=== PATIENT | male | born 1950 | race American Indian/Alaskan Native ===

== ENCOUNTER 2021-04-11 11:34 | Emergency (ER) | payer MEDICARE ==
[2021-04-11 11:42] VITALS: BP 153/78
--- NOTE | 2021-04-11 13:36 | Emergency Department Report ---
ED Extremity Problem HPI - General Chief complaint: Extremity Problem,Nontraumatic Stated complaint: RT KNEE PAIN Time Seen by Provider: 04/11/21 13:07 Source: patient Mode of arrival: Ambulatory Limitations: No Limitations - History of Present Illness Initial comments: 70-year-old -[place] male presents to the emergency room complaining of right knee pain this morning as he was getting. Patient states that pain is worse with walking and bearing weight. Patient reports that 20 years ago he had a total right knee replacement. Patient denies any new injuries. He states he took Aleve earlier this morning. Patient states he is cannot recall his knee surgeon. He does have a history of diabetes. Patient denies any fever chills denies any swelling to his right knee. MD Complaint: extremity pain, joint paint (Right knee pain) -: This morning Location: right, knee History of Same: Yes -: Yes arthralgia Severity scale (0 -10): 10 Quality: aching, sharp Improves with: rest Worsens with: weight bearing, walking Associated Symptoms: denies other symptoms - Related Data Previous Rx's Medication Instructions Recorded Last Taken Type Ibuprofen [Motrin 600 MG tab] 600 mg PO Q8H PRN #30 tablet 04/11/21 Unknown Rx traMADoL [Ultram 50 MG tab] 50 mg PO Q6HR PRN #15 tablet 04/11/21 Unknown Rx Allergies Allergy/AdvReac Type Severity Reaction Status Date / Time No Known Allergies Allergy Unverified 04/11/21 11:40 ED Review of Systems ROS: Stated complaint: RT KNEE PAIN Other details as noted in HPI Comment: All other systems reviewed and negative ED Past Medical Hx - Past Medical History Previous Medical History?: Yes Hx Diabetes: Yes - Surgical History Past Surgical History?: Yes Additional Surgical History: right knee surgery - Medications Home Medications: Home Medications Medication Instructions Recorded Confirmed Last Taken Type Ibuprofen [Motrin 600 MG tab] 600 mg PO Q8H PRN #30 tablet 04/11/21 Unknown Rx traMADoL [Ultram 50 MG tab] 50 mg PO Q6HR PRN #15 tablet 04/11/21 Unknown Rx ED Physical Exam - General Limitations: No Limitations General appearance: alert, in no apparent distress - Head Head exam: Present: atraumatic, normocephalic - Eye Eye exam: Present: normal appearance - ENT ENT exam: Present: normal external ear exam - Neck Neck exam: Present: normal inspection - Respiratory Respiratory exam: Absent: accessory muscle use - Cardiovascular Cardiovascular Exam: Present: regular rate - Expanded Lower Extremity Exam Right Knee exam: Present: full ROM, crepidus. Absent: tenderness, swelling, abrasion, deformity, dislocation, erythema, effusion Lower Leg exam: Present: full ROM Ankle exam: Present: normal inspection, full ROM Foot/Toe exam: Present: normal inspection Neuro vascular tendon exam: Present: no vascular compromise - Neurological Exam Neurological exam: Present: alert, oriented X3 - Psychiatric Psychiatric exam: Present: normal affect, normal mood - Skin Skin exam: Present: warm, dry, intact, normal color. Absent: rash ED Course Vital Signs 04/11/21 11:41 Temperature 98.4 F Pulse Rate 85 Respiratory 20 Rate Blood Pressure 153/78 O2 Sat by Pulse 98 Oximetry ED Medical Decision Making - Radiology Data Radiology results: report reviewed [facility] [address] [place] [address] XRay Report Signed Patient: NINO EDEN MR#: [id number] : 1950 Acct:[id number] Age/Sex: 70 / M ADM Date: 04/11/21 Loc: ED Attending Dr: Ordering Physician: NAUN DIGGS Date of Service: 04/11/21 Procedure(s): XR knee 3V RT Accession Number(s): [id number] cc: NAUN DIGGS Fluoro Time In Minutes: Right knee 4 views INDICATION: Pain FINDINGS: There is advanced tricompartmental degenerative osteoarthrosis. Postoperative change from prior ACL repair. The femoral ACL screw is partially backed out approximately 1.2 cm. Significant joint space narrowing is seen throughout with joint effusion. IMPRESSION: Tricompartmental degenerative osteoarthrosis. The proximal ACL screw protrudes 1.2 cm from the tunnel. Joint effusion. Signer Name: Ryan Sparks MD Signed: 04/11/2021 1:51 PM Workstation Name: [id number] Transcribed By: SOLOMON Dictated By: DANILO SPARKS MD Electronically Authenticated By: DANILO SPARKS MD Signed Date/Time: 04/11/21 1351 DD/ 1350 TD/TT: Print Cancel - Medical Decision Making 70-year-old -[place] male presents to the emergency room complaining of right knee pain this morning as he was getting. Patient states that pain is worse with walking and bearing weight. Patient reports that 20 years ago he had a total right knee replacement. Patient denies any new injuries. He states he took Aleve earlier this morning. Patient states he is cannot recall his knee surgeon. He does have a history of diabetes. Patient denies any fever chills denies any swelling to his right knee. X-ray of right knee shows tricompartment degenerative osteoarthritis. The proximal ACL screw protruding 1.2 cm from the tunnel. No joint effusion. We will place patient in Baum wrap and have him follow-up with orthopedic provider. Patient will be given pain medication. Discussed with patient of findings. Patient verbalized understanding of the plan. Critical care attestation.: If time is entered above; I have spent that time in minutes in the direct care of this critically ill patient, excluding procedure time. ED Disposition Clinical Impression: Pain, joint, knee, right Disposition: DC-01 TO HOME OR SELFCARE Is pt being admited?: No Does the pt Need Aspirin: No Condition: Stable Instructions: Acute Knee Pain, Adult, [id number] Additional Instructions: X-ray of right knee shows advanced tricompartment degenerative osteoarthritis. They do show that the proximal ACL screws protrudes 1.2 cm from the tunnel. You have a joint effusion. We will place you in a wrap and have you follow-up with orthopedics provider. Pain medication as needed. Prescriptions: Ibuprofen [Motrin 600 MG tab] 600 mg PO Q8H PRN #30 tablet PRN Reason: Pain , Severe (7-10) traMADoL [Ultram 50 MG tab] 50 mg PO Q6HR PRN #15 tablet PRN Reason: Pain , Severe (7-10) Referrals: ORIANA HINOJOSA MD [Staff Physician] - 3-5 Days BRADLY GARCIA MD [Staff Physician] - 3-5 Days Forms: Work/School Release Form(ED)
--- NOTE | 2021-04-11 13:55 | XRay Report ---
Right knee 4 views INDICATION: Pain FINDINGS: There is advanced tricompartmental degenerative osteoarthrosis. Postoperative change from p rior ACL repair. The femoral ACL screw is partially backed out approximately 1.2 cm. Significant join t space narrowing is seen throughout with joint effusion. IMPRESSION: Tricompartmental degenerative osteoarthrosis. The proximal ACL screw protrudes 1.2 cm from the tunnel . Joint effusion. Signer Name: Ryan Sparks MD Signed: 04/11/2021 1:51 PM Workstation Name: [id number]
[2021-04-11] MEDS ORDERED: IBUPROFEN 600 MG TAB PO ONE (13:57)
[2021-04-11] MEDS ORDERED: traMADol 50 MG TAB PO ONE (13:57)
== END 2021-04-11 16:12 | disposition home or self-care (01) ==
LOC: ED 11:34
DX: M25.561 Pain in right knee (principal); E11.9 Type 2 diabetes mellitus without complications; Z98.890 Other specified postprocedural states; Z79.1 Long term (current) use of non-steroidal anti-inflammatories (NSAID); Z79.899 Other long term (current) drug therapy

== ENCOUNTER 2021-09-10 12:52 | Emergency (ER) | payer MEDICARE ==
[2021-09-10 12:54] VITALS: BP 144/82
[2021-09-10] MEDS ORDERED: SULFAMETHOXAZOLE/TRIMETHOPRIM 800/160MG DS TAB PO ONE (13:09)
[2021-09-10] MEDS ORDERED: TETANUS,DIPH,PERTUSS(ACELL) VACCINE 0.5 ML SYRINGE IM ONE (13:09)
[2021-09-10] MEDS ORDERED: LIDOCAINE 1%/EPINEPHRINE 1:100,000 VIAL (20 ML) INFILTRATI NR (13:15)
[2021-09-10] MEDS ORDERED: LIDOCAINE (1%) 10 MG/1 ML VIAL 20 ML MDV INFILTRATI ONE (13:18)
--- NOTE | 2021-09-10 13:53 | Emergency Department Report ---
ED Upper Extremity Inj HPI - General Chief Complaint: Extremity Injury, Upper Stated Complaint: INSECT BITE Time Seen by Provider: 09/10/21 12:57 Source: patient Mode of arrival: Ambulatory Limitations: No Limitations - History of Present Illness Initial Comments: 71-year-old jyu-mhnqnsp-vrfibkpbi diabetic presents to the hospital complaining of right thumb pain and swelling progressively worsened for last 3 days. Pain is moderate to severe and worse with palpation and movement. Pain mostly around the nailbed but extends to the thumb and index finger. patient denies trauma, recent manicure, or nail biting. Patient is right-hand dominant. - Related Data Previous Rx's Medication Instructions Recorded Last Taken Type Ibuprofen [Motrin 600 MG tab] 600 mg PO Q8H PRN #20 tablet 09/10/21 Unknown Rx Sulfamethoxazole/Trimethoprim 1 each PO BID #14 tablet 09/10/21 Unknown Rx [Bactrim DS TAB] traMADoL [Ultram 50 MG tab] 50 mg PO Q6HR PRN #10 tablet 09/10/21 Unknown Rx Allergies Allergy/AdvReac Type Severity Reaction Status Date / Time No Known Allergies Allergy Unverified 04/11/21 11:40 ED Review of Systems ROS: Stated complaint: INSECT BITE Other details as noted in HPI Comment: All other systems reviewed and negative ED Past Medical Hx - Past Medical History Hx Hypertension: Yes Hx Diabetes: Yes Hx Renal Disease: Yes (CRI) Hx Arthritis: Yes - Surgical History Additional Surgical History: right knee surgery - Medications Home Medications: Home Medications Medication Instructions Recorded Confirmed Last Taken Type Ibuprofen [Motrin 600 MG tab] 600 mg PO Q8H PRN #20 tablet 09/10/21 Unknown Rx Sulfamethoxazole/Trimethoprim 1 each PO BID #14 tablet 09/10/21 Unknown Rx [Bactrim DS TAB] traMADoL [Ultram 50 MG tab] 50 mg PO Q6HR PRN #10 tablet 09/10/21 Unknown Rx ED Physical Exam - General Limitations: No Limitations - Other Other exam information: General: No acute distress Head: Atraumatic Eyes: normal appearance ENT: Moist mucous membranes Neck: Normal appearance, no midline tenderness Chest: Clear to auscultation bilaterally CV: Regular rate and rhythm Abdomen: Soft, normal bowel sounds, nontender, nondistended, no rebound or guarding Back: Normal inspection Extremity: Tenderness and swelling to the inferior lateral (ulnar side) portion of the right nailbed.. No tenderness to more proximal area of the thumb or index finger Neuro: Alert O x 3, no facial asymmetry, speech clear, no gross motor sensory deficit Psych: Appropriate behavior Skin: No rash ED Course Vital Signs 09/10/21 12:53 Temperature 98.2 F Pulse Rate 103 H Respiratory 18 Rate Blood Pressure 144/82 [Right] O2 Sat by Pulse 99 Oximetry - I & D Hand Type of Procedure: Simple Site: Lateral nailbed of right thumb (ulnar side) Blade Size: 11 I & D Procedure: betadine prep, sterile drapes applied, sterile dressing applied, gauze wick placed Progress: Positive purulent drainage ED Medical Decision Making - Medical Decision Making 71-year-old male presents to the hospital with a right thumb paronychia. Status post incision and drainage with purulent drainage from the nailbed. Bactrim and tetanus provided. Dressing applied. Patient to follow-up for packing removal in 2 days here or with PCP Critical Care Time: No Critical care attestation.: If time is entered above; I have spent that time in minutes in the direct care of this critically ill patient, excluding procedure time. ED Disposition Clinical Impression: Paronychia Disposition: HOME / SELF CARE / HOMELESS Is pt being admited?: No Does the pt Need Aspirin: No Condition: Stable Instructions: Paronychia Additional Instructions: Take the medication as prescribed. Follow-up with your doctor or doctor/clinic provided or you may return here for packing removal in 2 days. Return if symptoms worsen as indicated by your discharge instructions. Prescriptions: Sulfamethoxazole/Trimethoprim [Bactrim DS TAB] 1 each PO BID #14 tablet Ibuprofen [Motrin 600 MG tab] 600 mg PO Q8H PRN #20 tablet PRN Reason: Pain , Severe (7-10) traMADoL [Ultram 50 MG tab] 50 mg PO Q6HR PRN #10 tablet PRN Reason: Pain , Severe (7-10) Referrals: GIO ARREOLA MD [Staff Physician] - 3-5 Days [facility] [Provider Group] - 3-5 Days Time of Disposition: 14:04
== END 2021-09-10 14:28 | disposition home or self-care (01) ==
LOC: ED 12:52
DX: L03.011 Cellulitis of right finger (principal)
CPT/HCPCS: 10060; 90471; 90715; 99282; J3490

== ENCOUNTER 2022-05-11 21:03 | Emergency (ER) | payer MEDICARE ==
--- NOTE | 2022-05-11 22:22 | XRay Report ---
RIGHT KNEE 3 VIEW(S) INDICATION / CLINICAL INFORMATION: INJURY COMPARISON: 04/11/2021 FINDINGS: BONES / JOINT(S): There has been interval right knee arthroplasty since the prior exam. No fracture o r loosening is seen. SOFT TISSUES: There is mild prepatellar soft tissue swelling. Punctate ossific densities adjacent to the superior pole of the patella could be small intra-articular bodies or soft tissue calcifications. ADDITIONAL FINDINGS: None. IMPRESSION: 1. No acute skeletal abnormality. 2. Prepatellar soft tissue swelling. 3. Ossific densities along the superior pole of the patella could be heterotopic ossification or intr a-articular bodies. Comparison with prior postoperative radiographs, if available, would be useful. 4. The patella is somewhat low lying. This may be due to positioning/degree of knee flexion. Does thi s patient have any signs/symptoms of distal quadriceps injury Signer Name: Ritesh Jonas MD Signed: 05/11/2022 10:17 PM Workstation Name: [id number]
[2022-05-11] MEDS ORDERED: IBUPROFEN 600 MG TAB PO ONE (23:19)
[2022-05-11] MEDS ORDERED: ACETAMINOPHEN 500 MG TAB PO ONE (23:19)
[2022-05-11] MEDS ORDERED: predniSONE 20 MG TAB PO ONE (23:19)
--- NOTE | 2022-05-11 23:54 | Emergency Department Report ---
ED Extremity Problem HPI - General Chief complaint: Extremity Injury, Lower Stated complaint: KNEE PAIN Source: patient Mode of arrival: Ambulatory Limitations: No Limitations - History of Present Illness Initial comments: Patient is a 71-year-old -[place] male with a history of hypertension, loe-wcireyn-yvotpognl diabetes, chronic renal disease, and osteoarthritis who presents to the ED with complaint of acute onset persistent nontraumatic right knee pain persistently for the last 1 week. Patient states that 2 days ago he twisted his right knee while walking and that about a year ago he had a total knee replacement on the right knee. Patient states that since that surgery, he has been having persistent right knee pain which is worse with movement. Patient states that despite taking hqwz-kgx-odpfxyt medications there has not been any change. Patient denies dizziness, syncope, fall, nausea and vomiting, chest pain, shortness of breath, fever, chills, numbness and tingling or weakness of lower extremities bilaterally. MD Complaint: extremity pain (Right knee pain and swelling), extremity swelling (Right knee pain and swelling), joint swelling (Right knee), joint paint (Right knee) -: Gradual, year(s) (1) Location: right, lower extremity (right knee), knee (Right knee) History of Same: Yes (Chronic osteoarthritis) -: Yes arthralgia (Right knee) Severity scale (0 -10): 8 Quality: aching, sharp Consistency: constant Improves with: nothing Worsens with: weight bearing, walking, exertion, palpation Associated Symptoms: denies other symptoms, arthralgias (Right knee pain). denies: chest pain, shortness of breath, myalgias, rash - Related Data Previous Rx's Medication Instructions Recorded Last Taken Type Ibuprofen [Motrin 600 MG tab] 600 mg PO Q8H PRN #20 tablet 09/10/21 Unknown Rx Sulfamethoxazole/Trimethoprim 1 each PO BID #14 tablet 09/10/21 Unknown Rx [Bactrim DS TAB] predniSONE [Deltasone] 40 mg PO DAILY #10 tab 05/11/22 Unknown Rx Acetaminophen [Tylenol] 500 mg PO Q6HR PRN #40 tablet 05/12/22 Unknown Rx traMADoL [Ultram] 50 mg PO Q6HR PRN #15 tablet 05/12/22 Unknown Rx Allergies Allergy/AdvReac Type Severity Reaction Status Date / Time No Known Allergies Allergy Unverified 04/11/21 11:40 ED Review of Systems ROS: Stated complaint: KNEE PAIN Other details as noted in HPI Constitutional: denies: chills, fever Eyes: denies: eye pain, eye discharge, vision change ENT: denies: ear pain, throat pain Respiratory: denies: cough, shortness of breath, wheezing Cardiovascular: denies: chest pain, palpitations Endocrine: no symptoms reported Gastrointestinal: denies: abdominal pain, nausea, vomiting, diarrhea Genitourinary: denies: urgency, dysuria Musculoskeletal: joint swelling (right knee pain ), arthralgia (right knee pain). denies: back pain, myalgia Skin: denies: rash, lesions Neurological: denies: headache, weakness, paresthesias Psychiatric: denies: anxiety, depression Hematological/Lymphatic: denies: easy bleeding, easy bruising ED Past Medical Hx - Past Medical History Hx Hypertension: Yes Hx Diabetes: Yes Hx Renal Disease: Yes (CRI) Hx Arthritis: Yes - Surgical History Additional Surgical History: right knee surgery - Medications Home Medications: Home Medications Medication Instructions Recorded Confirmed Last Taken Type Ibuprofen [Motrin 600 MG tab] 600 mg PO Q8H PRN #20 tablet 09/10/21 Unknown Rx Sulfamethoxazole/Trimethoprim 1 each PO BID #14 tablet 09/10/21 Unknown Rx [Bactrim DS TAB] predniSONE [Deltasone] 40 mg PO DAILY #10 tab 05/11/22 Unknown Rx Acetaminophen [Tylenol] 500 mg PO Q6HR PRN #40 tablet 05/12/22 Unknown Rx traMADoL [Ultram] 50 mg PO Q6HR PRN #15 tablet 05/12/22 Unknown Rx ED Physical Exam - General Limitations: No Limitations General appearance: alert, in no apparent distress - Head Head exam: Present: atraumatic, normocephalic - Eye Eye exam: Present: normal appearance, PERRL, EOMI Pupils: Present: normal accommodation - ENT ENT exam: Present: normal exam, normal orophraynx, mucous membranes moist, TM's normal bilaterally, normal external ear exam - Neck Neck exam: Present: normal inspection, full ROM. Absent: tenderness - Respiratory Respiratory exam: Present: normal lung sounds bilaterally. Absent: respiratory distress, wheezes, rales, rhonchi, stridor, chest wall tenderness, accessory muscle use, decreased breath sounds, prolonged expiratory - Cardiovascular Cardiovascular Exam: Present: regular rate, normal rhythm. Absent: systolic murmur, diastolic murmur, rubs, gallop - GI/Abdominal GI/Abdominal exam: Present: soft, normal bowel sounds. Absent: tenderness, guarding, rebound, hyperactive bowel sounds, hypoactive bowel sounds, organomegaly - Extremities Exam Extremities exam: Present: normal inspection, full ROM, tenderness (Palpable right knee tenderness with mild swelling), normal capillary refill, joint swelling. Absent: pedal edema, calf tenderness - Back Exam Back exam: Present: normal inspection, full ROM. Absent: tenderness, CVA tenderness (R), CVA tenderness (L), muscle spasm, paraspinal tenderness, vertebral tenderness - Neurological Exam Neurological exam: Present: alert, oriented X3, CN II-XII intact, normal gait, reflexes normal - Psychiatric Psychiatric exam: Present: normal affect, normal mood - Skin Skin exam: Present: warm, dry, intact, normal color. Absent: rash ED Course Vital Signs 05/11/22 05/12/22 05/12/22 21:07 00:06 00:07 Temperature 98.3 F Pulse Rate 81 Respiratory 18 18 18 Rate Blood Pressure 124/73 O2 Sat by Pulse 97 Oximetry ED Medical Decision Making - Radiology Data [facility] [address] [place] [address] XRay Report Signed Patient: NINO EDEN MR#: [id number] : 1950 Acct:[id number] Age/Sex: 71 / M ADM Date: 05/11/22 Loc: ED Attending Dr: Ordering Physician: AMILCAR GEORGE MD Date of Service: 05/11/22 Procedure(s): XR knee 3V RT Accession Number(s): [id number] cc: ED MD ARIEL Fluoro Time In Minutes: RIGHT KNEE 3 VIEW(S) INDICATION / CLINICAL INFORMATION: INJURY COMPARISON: 04/11/2021 FINDINGS: BONES / JOINT(S): There has been interval right knee arthroplasty since the prior exam. No fracture or loosening is seen. SOFT TISSUES: There is mild prepatellar soft tissue swelling. Punctate ossific densities adjacent to the superior pole of the patella could be small intra-articular bodies or soft tissue calcifications. ADDITIONAL FINDINGS: None. IMPRESSION: 1. No acute skeletal abnormality. 2. Prepatellar soft tissue swelling. 3. Ossific densities along the superior pole of the patella could be heterotopic ossification or intra-articular bodies. Comparison with prior postoperative radiographs, if available, would be useful. 4. The patella is somewhat low lying. This may be due to positioning/degree of knee flexion. Does this patient have any signs/symptoms of distal quadriceps injury Signer Name: Ritesh Jonas MD Signed: 05/11/2022 10:17 PM Workstation Name: [id number] Transcribed By: JOE Dictated By: Ritesh Jonas MD Electronically Authenticated By: Ritesh Jonas MD Signed Date/Time: 05/11/222216 DD/ 15 TD/TT: Print - Medical Decision Making This is a 71-year-old -[place] male with a history of hypertension, pro-ufktggx-nwgpxnjdo diabetes, chronic renal disease, and osteoarthritis who presents to the ED with complaint of acute onset persistent nontraumatic right knee pain persistently for the last 1 week. Patient states that 2 days ago he twisted his right knee while walking and that about a year ago he had a total knee replacement on the right knee. Patient states that since that surgery, he has been having persistent right knee pain which is worse with movement. P atient states that despite taking gamr-zxw-uvymbrn medications there has not been any change. In the ED, patient is alert and oriented x3 and is not in any distress. Patient was treated for pain in the ED. Right knee x-ray showed no acute fractures or subluxation. Patient already had a knee brace on the right knee and was discharged home on pain medications and advised to follow-up with his primary care physician in 7 to 10 days for reevaluation or return to the ED immediately if symptoms get worse. - Differential Diagnosis Chronic osteoarthritis; knee tendinitis; knee bursitis; knee muscle strain Critical care attestation.: If time is entered above; I have spent that time in minutes in the direct care of this critically ill patient, excluding procedure time. ED Disposition Clinical Impression: Tendinitis of right knee, Chronic osteoarthritis Disposition: HOME / SELF CARE / HOMELESS Is pt being admited?: No Does the pt Need Aspirin: No Condition: Stable Instructions: Arthritis, Khde-ig-Maty, Bursitis, Mbjk-ve-Tvux, Tendinitis, Lajd-mv-Sngl Additional Instructions: Take medication with food, drink plenty of fluids, follow-up with your primary care physician in 7 to 10 days for reevaluation. Return to the ED immediately if symptoms get worse. Prescriptions: Acetaminophen [Tylenol] 500 mg PO Q6HR PRN #40 tablet PRN Reason: Pain , Severe (7-10) predniSONE [Deltasone] 40 mg PO DAILY #10 tab traMADoL [Ultram] 50 mg PO Q6HR PRN #15 tablet PRN Reason: Pain Referrals: [facility] [Provider Group] - 3-5 Days Time of Disposition: 00:03 Print Language: WELSH
[2022-05-12 00:52] VITALS: BP 127/84
== END 2022-05-12 01:05 | disposition home or self-care (01) ==
LOC: ED 21:03
DX: M76.51 Patellar tendinitis, right knee (principal); M19.90 Unspecified osteoarthritis, unspecified site; I10 Essential (primary) hypertension; E11.9 Type 2 diabetes mellitus without complications
CPT/HCPCS: 99283